=== PATIENT | male | born 1955 | race Caucasian/White ===

== ENCOUNTER → 2021-03-16 | Outpatient (CLI) | payer MEDICARE ==
[~2021-03-16] MED LIST: ATEN25TA PO; CHOL10003 PO; FERR-46 PO; MULT-658 PO
[2021-03-16 10:44] LABS: BASOPHILS % (AUTO) 1 % (0-1); EOSINOPHILS % (AUTO) 2 % (1-7); LYMPHOCYTES % (AUTO) 31 % (22-44); MEAN CORPUSCULAR HEMOGLOBIN 28.4 pg (27.5-34.5); MEAN CORPUSCULAR HGB CONC 32.8 g/dL (33.2-36.2); MONOCYTES % (AUTO) 8 % (2-9); NEUTROPHILS % (AUTO) 58 % (42-75); PLATELET COUNT 172 x10^3/uL (130-400); RED BLOOD COUNT 4.81 x10^6/uL (4.38-5.82); RED CELL DISTRIBUTION WIDTH 23.5 % (9.4-14.8)
[2021-03-16 11:03] LABS: MD MORPH REVIEW ONLY
[2021-03-16 11:04] LABS: <PLATELET ESTIMATE> ADEQUATE; ANISOCYTOSIS 1+; LARGE PLATELETS 1+
== END | disposition home or self-care (01) ==
LOC: STAR 09:48
PROVIDERS: ATTEND Internal Medicine Gastroenterology
DX: Z01.818 Encounter for other preprocedural examination (principal); K55.21 Angiodysplasia of colon with hemorrhage; D50.9 Iron deficiency anemia, unspecified; K92.1 Melena; I49.1 Atrial premature depolarization; Z20.822 Contact with and (suspected) exposure to COVID-19
CPT/HCPCS: 36415; 85025; 93005; U0003; U0005

== ENCOUNTER 2021-03-22 10:55 | Day surgery (SDC) | payer MEDICARE, OTHER ==
[~2021-03-22] VITALS: Ht 182.9 cm; Wt 70.5 kg
[2021-03-22] MEDS ORDERED: CHLORHEXIDINE 15 ML UDC ONE (11:44)
[2021-03-22] MEDS ORDERED: CHLORHEXIDINE 15 ML UDC PO ONE (12:00)
[2021-03-22] MEDS ORDERED: LACTATED RINGERS 1,000 ML IV SCH (12:00)
[2021-03-22 12:09] VITALS: BP 144/82
[2021-03-22] MEDS ORDERED: PROPOFOL 10 MG/ML, 20ML ONE ×2 (13:05)
[2021-03-22] MEDS ORDERED: PROPOFOL 50 ML ONE (13:05)
[2021-03-22] MEDS ORDERED: LIDOCAINE-MPF 2% ,5ML ONE (13:05)
[2021-03-22] MEDS ORDERED: ONDANSETRON 2MG/ML, 2ML IVPush PRN (14:00)
[2021-03-22] MEDS ORDERED: PROMETHAZINE 25 MG/ML, 1ML IVPush PRN (14:00)
[2021-03-22] MEDS ORDERED: OXYcodone 5 MG/5 ML ORAL.SOL UDC PO PRN (14:00)
[2021-03-22] MEDS ORDERED: HYDROmorphone 1 MG/ML, 1ML INJ IVPush PRN (14:00)
[2021-03-22] MEDS ORDERED: FENTANYL PF 100 MCG/2ML IV PRN (14:00)
[2021-03-22] MEDS ORDERED: ACETAMINOPHEN 325 MG TABLET PO PRN (14:00)
[2021-03-22] MEDS ORDERED: PROMETHAZINE 25 MG SUPP PR PRN (14:00)
[2021-03-22] MEDS ORDERED: METOPROLOL 1 MG/ML, 5ML IV PRN (14:00)
== END 2021-03-22 15:25 | disposition home or self-care (01) ==
LOC: OUT 10:55
PROVIDERS: ATTEND Internal Medicine Gastroenterology
DX: D50.9 Iron deficiency anemia, unspecified (principal); K55.21 Angiodysplasia of colon with hemorrhage; K57.30 Diverticulosis of large intestine without perforation or abscess without bleeding; K31.7 Polyp of stomach and duodenum; K29.70 Gastritis, unspecified, without bleeding; K62.1 Rectal polyp; I10 Essential (primary) hypertension
CPT/HCPCS: 43239; 45385; 45388; 88305; J2704; J7120